=== PATIENT | male | born 1995 | race Caucasian/White ===

== ENCOUNTER 2017-05-15 07:37 | Emergency (ER) | payer SELFPAY ==
[~2017-05-15] VITALS: Ht 182.9 cm; Wt 81.8 kg
--- NOTE | 2017-05-15 07:34 | ED.REPORT ---
HPI-Seizure Date of Service May 15, 2017 ED Provider: Dr. Coreas Pt is a healthy 21 year old male who presents to the ED via EMS with concerns for multiple seizures over the last couple of hours. He reports that he was out drinking with his friends last night, when they noticed him experiencing seizure like activity. Pt states that he had similar symptoms 6 months ago, and had a full neurology work up including EEG and MRI with no conclusive findings. He is not currently taking any medications. He has no other complaints. Nursing Notes Stated Complaint: SEIZURES Nursing Notes Reviewed: Yes Allergies: Coded Allergies: No Known Allergies (Unverified , 05/15/17) General Time Seen by Provider: 08:00 Chief Complaint Chief Complaint: Seizure, generalized Hx Obtained From: Patient Arrived By: Ambulance Onset Occurred: Yesterday Symptom Duration: Intermittent Location: : Head Quality: Aching Severity: Current: Mild Severity: Maximum: Mild Similar Sx Previous: Yes Past Medical History Past Medical History Seizure actiivty Otherwise healthy Past Surgical History Denies Social History Alcohol Use: "Social" Review of Systems Constitutional: Denies: Chills, Fever, Malaise, Weakness - generalized Respiratory: Denies: Non-productive cough, Wheezing Cardiovascular: Denies: Chest pain, Syncope Musculoskeletal: Denies: Neck pain Skin: Denies Bruising Neurologic: Reports: Change LOC, Headache, Seizure, Denies: Dizziness Complete sys rev & neg: except as marked. Physical Exam Initial Vital Signs Vital Signs (First) Date Time Temp Pulse Resp B/P Pulse Ox O2 Delivery O2 Flow Rate FiO2 05/15/17 07:42 36.4 79 18 141/68 95 Room Air Initial VS: Reviewed Head / Eyes: Atraumatic, Normocephalic, PERRL ENT: Mucous membranes moist, Conjunctiva normal, No scleral icterus Skin: Warm, Dry, No cyanosis General/Constitutional: Awake, Alert, No acute distress, Well appearing, Well developed, Well hydrated, Well nourished, Cooperative Small superficial abrasions about the right side of his face Neck: Atraumatic, Supple, No meningismus, Full range of motion Respiratory / Chest: Atraumatic, Breath sounds NL, Breath sounds = bilat, No respiratory distress Cardiovascular: Heart rate NL, Regular rhythm, Heart sounds NL, No gallop, No murmurs, No rubs Neurologic: Oriented X3, Speech NL, No motor deficits, No sensory deficits, CN II - XII intact Interpretation & Diagnostics ECG Interpretation ECG Interpretation: SR - 77 Normal axis and normal inter No brugada No WPW QTC of 418 Time: 07:12 Interpreted by: ED physician Re-Eval/Medical Decision Med Decision/Clinical Course Patient is back to normal neurologic baseline. Suspect patient has some underlying predisposition to epilepsy and had breakthrough seizures due to alcohol use yesterday. Given that he has had 2 seizures today and preceding seizures in the last 6 months we will plan to start Keppra. 5000 mg loading dose of Keppra was given in the ER. Patient is neurologically intact and will be discharged. Return and follow-up precautions given. Source of Hx: Old records Re-Evaluation/Progress : Time of Eval: 08:18 Re-Evaluation/Progress Note: Pt is rechecked and informed of his diagnosis and the plan to discharge him at this time. He understands and agrees, all questions are addressed. Counseled Regarding: Diagnosis, Lab results, Need for follow-up, When/why to return to ED Discharge & Departure Impression: Primary Impression: Seizure Disposition: Home Discharge Condition All VS Reviewed: Yes Condition: Stable Additional Instructions: Take Keppra twice daily to prevent further seizure activity. Avoid alcohol or any illicit drug use as this may lower your body's threshold to have a seizure. Call your primary care doctor and neurologist in the morning for close follow- up and reevaluation. Return to the ER if you develop multiple seizures without return to normal neurologic baseline, seizures lasting more than 15 minutes, other altered mental status, or any other concerns Scribe Attestation Portions of this note were transcribed by Maggie Ventura. I, Dr. Coreas personally performed the history, physical exam and medical decision-making; I reviewed and confirmed the accuracy of the information in the transcribed note. Signed by: Chandu Meadows, 05/15/2017 08:25 Errol Coreas DO May 15, 2017 07:33 SURAJ VENTURA May 15, 2017 08:04
[2017-05-15 07:42] VITALS: BP 141/68; PULSE 79; RESP 18; O2SAT 95
[2017-05-15] MEDS ORDERED: 0.9% Sodium Chloride 1,000 ML IV ONE (07:55)
[2017-05-15] MEDS ORDERED: levETIRAcetam 500 mg Tablet PO ONE (08:05)
[2017-05-15] MEDS ORDERED: KEP500TA PO (08:42)
[2017-05-15 08:44] VITALS: BP 140/69; PULSE 80; RESP 17; O2SAT 98
== END 2017-05-15 08:44 | disposition home or self-care (01) ==
LOC: SED 07:37
DX: R56.9 Unspecified convulsions (principal)
CPT/HCPCS: 93005; 96360; 99285; J7030